=== PATIENT | male | born 1950 | race Caucasian/White ===

== ENCOUNTER 2018-01-26 10:35 | Outpatient (CLI) | payer MEDICARE ==
[2018-01-26] MEDS ORDERED: IOPAMIDOL-300 100 ML VIAL ONE ×2 (10:57→10:58)
[2018-01-26] MEDS ORDERED: IOPAMIDOL-300 50 ML VIAL ONE (10:57)
[2018-01-26] MEDS ORDERED: IOPAMIDOL-300 100 ML VIAL IVP ONE (13:03)
[2018-01-26] MEDS ORDERED: IOPAMIDOL-300 50 ML VIAL PO ONE (13:03)
--- NOTE | 2018-01-26 14:55 | CT Report ---
Reason: LLQ PAIN Procedure Date: 01/26/2018 Accession Number: [id number] / [id number] Procedure: CT - Abdomen/Pelvis W/ CPT Code: FULL RESULT: EXAM: CT ABDOMEN AND PELVIS EXAM DATE: 01/26/2018 12:35 PM. CLINICAL HISTORY: Left lower quadrant pain. COMPARISONS: None. TECHNIQUE: Routine helical CT imaging was performed through the abdomen and pelvis. IV contrast: ISOVUE 300 100mL. Enteric contrast: Yes. Reconstructions: Coronal and sagittal. In accordance with CT protocol optimization, one or more of the following dose reduction techniques were utilized for this exam: automated exposure control, adjustment of mA and/or KV based on patient size, or use of iterative reconstructive technique. FINDINGS: Lung Bases: Unremarkable. Liver: Liver demonstrates a hepatic cyst as well as a hypodensity too small to characterize and is otherwise unremarkable. Gallbladder/Bile Ducts: Unremarkable. Spleen: Normal. Pancreas: Normal. Adrenal Glands: Normal. Kidneys: Right renal cyst and left renal hypodensity too small to characterize. Peritoneal Cavity/Bowel: Extensive sigmoid colonic diverticulosis without diverticulitis. No free fluid, free air or adenopathy. No masses or acute inflammatory process. The appendix is well visualized and normal. Sliding hiatal hernia is noted. Pelvic Organs: Normal. The bladder and visualized pelvic organs are within normal limits. Vasculature: No aneurysms or other significant abnormality. Bones: No significant abnormality. Other: None. IMPRESSION: No acute abnormality of the abdomen or pelvis. RADIA
== END 2018-01-26 10:36 | disposition home or self-care (01) ==
LOC: LAB 10:35
PROVIDERS: ATTEND Internal Medicine
DX: R10.32 Left lower quadrant pain (principal)
CPT/HCPCS: 36415; 74177; 82565; Q9967

== ENCOUNTER 2020-07-13 21:00 | Outpatient (CLI) | payer MEDICARE | END 2020-07-13 21:01 | disposition home or self-care (01) | LOC: COV 21:00 | PROVIDERS: ATTEND Surgery | DX: Z01.812 Encounter for preprocedural laboratory examination (principal); R13.10 Dysphagia, unspecified; Z87.19 Personal history of other diseases of the digestive system; Z20.822 Contact with and (suspected) exposure to COVID-19 ==

== ENCOUNTER 2020-07-18 07:25 | Day surgery (SDC) | payer MEDICARE ==
[2020-07-18] MEDS ORDERED: LACTATED RINGERS 1,000 ML IV ONE ×2 (07:28→09:36)
[2020-07-18] MEDS ORDERED: LIDO GARGLE 30 ML BOTTLE ONE (08:33)
[2020-07-18] MEDS ORDERED: MIDAZOLAM 2 MG/2 ML VIAL ONE ×2 (08:46→09:08)
[2020-07-18] MEDS ORDERED: fentaNYL 250 MCG/5 ML VIAL ONE (08:46)
[2020-07-18 10:02] VITALS: BP 126/89
== END 2020-07-18 07:26 | disposition home or self-care (01) ==
LOC: SDS 07:25
PROVIDERS: ATTEND Surgery
PROC: 0DB48ZX Excision of Esophagogastric Junction, Via Natural or Artificial Opening Endoscopic, Diagnostic (ICD-10-PCS; principal; 2020-07-18 08:30)
DX: K22.70 Barrett's esophagus without dysplasia (principal); K21.00 Gastro-esophageal reflux disease with esophagitis, without bleeding; K29.70 Gastritis, unspecified, without bleeding; K57.30 Diverticulosis of large intestine without perforation or abscess without bleeding; K44.9 Diaphragmatic hernia without obstruction or gangrene; E78.5 Hyperlipidemia, unspecified; H91.90 Unspecified hearing loss, unspecified ear; F43.10 Post-traumatic stress disorder, unspecified; F32.9 Major depressive disorder, single episode, unspecified; Z79.82 Long term (current) use of aspirin; Z79.899 Other long term (current) drug therapy; Z87.891 Personal history of nicotine dependence
CPT/HCPCS: 43239; 45378; A9270; J3010; J7120

== ENCOUNTER 2022-07-01 08:37 | Outpatient (CLI) | payer MEDICARE ==
--- NOTE | 2022-07-01 11:42 | XRAY Report ---
PROCEDURE: Lumbar Spine 2 View INDICATIONS: LOW BACK PAIN TECHNIQUE: 3 views of the lumbar spine were acquired. COMPARISON: None. FINDINGS: Bones: 5 [id number] vertebrae are present. There is trace retrolisthesis of L2 on L3, L3 on L4 . There is severe disc space narrowing at L5-S1, moderate to severe throughout the remainder of the l umbar spine. Prominent bridging anterior ossification present at L5-S1, L2-3, T12-L1. There is severe foraminal narrowing at L5-S1, moderate to severe L3-4 and L4-5. Vertebral body compression fractures . No suspicious bony lesions. Soft tissues: Overlying bowel gas pattern is normal. No suspicious soft tissue calcifications. IMPRESSION: Multilevel degenerative changes most severe at L5-S1. Reviewed by: Amy Fox MD on 07/01/2022 11:41 AM PST Approved by: Amy Fox MD on 07/01/2022 11:41 AM PST Station ID: [id number]
== END 2022-07-01 08:38 | disposition home or self-care (01) ==
LOC: DI.S 08:37
PROVIDERS: ATTEND Physician Assistant
DX: M47.816 Spondylosis without myelopathy or radiculopathy, lumbar region (principal); M47.817 Spondylosis without myelopathy or radiculopathy, lumbosacral region; M43.16 Spondylolisthesis, lumbar region; M48.07 Spinal stenosis, lumbosacral region; M48.061 Spinal stenosis, lumbar region without neurogenic claudication

== ENCOUNTER 2023-06-15 07:07 | Outpatient (CLI) | payer MEDICARE ==
--- NOTE | 2023-06-17 11:21 | Ultrasound Report ---
PROCEDURE: Abdomen Limited INDICATIONS: ELEVATED LIVER ENZYMES TECHNIQUE: Real-time focused scanning was performed of the abdomen, with image documentation. COMPARISONS: CT abdomen dated 01/26/2018. FINDINGS: Liver: Liver appears diffusely echogenic representing fatty liver. The liver measures 15.8 cm in larg est diameter. Several cystic lesions of the liver are seen with posterior sound enhancement, thin suarez, no interna l soft tissue components, the largest one measuring 4.2 cm in size in the left lobe. Gallbladder: Unremarkable with a uniform wall thickness around 2.1 mm. No significant pericholecystic fluid. Biliary ducts: Intrahepatic bile ducts are non-dilated. Extrahepatic bile duct caliber measures 4.6 mm. Normal is 6-7 mm or less in diameter, or 10 mm or less post-cholecystectomy. Pancreas: Visualized portions of the pancreas are sonographically normal. Right kidney: Normal in size and echotexture. Right kidney measures 10.9 cm long. No hydronephrosis or nephrolithiasis. No solid masses. At least 2 cystic lesions of the kidney seen, with posterior si de enhancement, clear suarez, no internal echogenicity, larger stone in the upper pole measuring 1.9 x 1.8 x 1.4 cm and in the inferior/interpolar region/parapelvic area measuring 1.4 x 1.1 x 1.6 cm. No complex renal cystic lesions which require follow-up. Aorta: Visualized aorta is normal in caliber at less than 3 cm. IVC: Intrahepatic inferior vena cava is patent. Miscellaneous: No free abdominal fluid. IMPRESSION: 1. Suggestion of fatty liver 2. Liver and right renal cysts Reviewed by: Raudel Baird MD on 06/15/2023 11:13 AM PST Approved by: Raudel Baird MD on 06/15/2023 11:13 AM PST Station ID: [id number]
== END 2023-06-15 07:08 | disposition home or self-care (01) ==
LOC: DI 07:07
PROVIDERS: ATTEND Internal Medicine
DX: K76.89 Other specified diseases of liver (principal); N28.1 Cyst of kidney, acquired